=== PATIENT | female | born 1985 | race Caucasian/White ===

== ENCOUNTER → 2018-09-24 | Outpatient (CLI) | payer OTHER ==
--- NOTE | 2018-09-24 14:28 | REP ---
BILATERAL MAMMOGRAM WITH DIAGNOSTIC MAMMOGRAM RIGHT BREAST AND RIGHT BREAST ULTRASOUND: HISTORY: Palpable lump upper outer quadrant right breast. Family history breast cancer in maternal aunt over age 50. Baseline study. [facility] lifetime risk of breast cancer 15.3%. The site of the palpable lump is marked on the skin with a triangular marker. Additional spot compression views of that area are performed. There is relatively mild scattered symmetrical fibroglandular tissue present primarily in the upper outer quadrants of each breast. I see no mass or architectural distortion. No clustered microcalcifications are seen. Real-time sonographic evaluation of right breast performed in the upper outer quadrant at the site of the reported palpable lump. In that region of the right breast at 9 o'clock is a hypoechoic nodule which is wider than tall measuring 6 x 3 x 4 mm. Differential diagnosis would include complex cyst or solid nodule, possibly a fibroadenoma. No other cystic or solid nodule is see in that region. IMPRESSION: BIRADS 4: BI-RADS/ACR category 4 mammogram. Suspicious Abnormality - biopsy should be considered. No mammographic abnormality is seen on today's baseline mammogram, and no mammographic abnormality in the upper outer quadrant of the right breast at the site of the reported palpable lump. However by ultrasound at 9 o'clock in the right breast and oval hypoechoic nodule is seen measuring 6 x 3 x 4 mm representing a complex cyst or solid nodule. Recommend ultrasound guided biopsy. This mammogram was interpreted with the aid of an FDA-approved computer-aided detection system. The patient states he/she had a clinical breast exam in 06/2018. The patient letter being requested is M4. Electronically Signed by Patrick Olsen MD 09/26/2018 12:01 P
== END ==
LOC: M RAD 10:41
PROVIDERS: ATTEND Family Medicine
DX: R92.8 Other abnormal and inconclusive findings on diagnostic imaging of breast (principal)

== ENCOUNTER → 2018-11-02 | Outpatient (CLI) | payer OTHER ==
[~2018-11-02] MED LIST: LIDOCAINE 1% MDV 20ML VIAL As Ordered ONE
--- NOTE | 2018-11-02 10:25 | REP ---
POSTBIOPSY MAMMOGRAM RIGHT BREAST: Postbiopsy mammogram is performed following ultrasound guided biopsy of a hypoechoic nodule at 9 o'clock in the right breast. A metallic clip is seen in the posterior third of the right breast slightly laterally. Electronically Signed by Patrick Olsen MD 11/05/2018 01:29 P
--- NOTE | 2018-11-02 12:16 | REP ---
Ultrasound-guided right breast biopsy. The procedure was performed by PRASHANT Jain, under the direct supervision of Dr. Olsen. The patient has a history of a 0.4 x 0.6 x 0.3 cm at rest mass at the site of reported palpable abnormality also seen on a previous ultrasound dated 09/24/2018. The risks and benefits of the procedure were explained to the patient and informed consent was obtained both verbally and written. Directly prior to the start of the procedure, a formal time a was completed in the procedure room. The right breast mass was localized using ultrasound guidance. The skin was prepped and draped in a sterile fashion. 5 mL 1% lidocaine was used as a local anesthetic. Using ultrasound guidance a 13-gauge suction assisted Mammotome needle was inserted and 2 ]core biopsy samples were obtained. A marker clip was placed at the biopsy site. The patient tolerated the procedure well and there were no immediate complications. After the appropriate monitored convalescence the patient was discharged from the department. Reviewed by PRASHANT Zapata 11/02/2018 10:58 A Electronically Signed by Patrick Olsen MD 11/02/2018 12:07 P
== END ==
LOC: M RADPRO 08:18
PROVIDERS: ATTEND Surgery
DX: N63.11 Unspecified lump in the right breast, upper outer quadrant (principal)